=== PATIENT | male | born 1990 | race Caucasian/White ===

== ENCOUNTER 2019-01-25 21:14 | Emergency (ER) | payer OTHER, MEDICAID ==
[~2019-01-25] VITALS: Ht 182.9 cm; Wt 95.3 kg
[2019-01-25 22:06] VITALS: BP 115/73
[2019-01-25 23:31] LABS: Basophils # (auto) 0 uL; Basophils % (auto) 0.5 % (0.0-2.0); Eosinophils # (auto) 0.1 uL; Eosinophils % (auto) 1.6 % (0.0-7.0); Hematocrit 37.8 % (41.0-53.0); Hemoglobin 13.3 g/dL (13.5-17.5); Lymphocytes # (auto) 0.7 uL; Lymphocytes % (auto) 14.6 % (10.0-50.0); Mean Corpuscular Hemoglobin 30.3 pg (28.0-32.0); Mean Corpuscular Hgb Conc. 35.2 g/dL (32.0-36.0); Mean Corpuscular Volume 85.9 fL (80.0-100.0); Monocytes # (auto) 0.3 uL; Monocytes % (auto) 6.5 % (0.0-12.0); Neutrophils # (auto) 3.9 uL; Neutrophils % (auto) 76.8 % (37.0-80.0); Nucleated Red Blood Cells % 0.1 %; Platelet Count (auto) 146 10^3/uL (140-450); Red Cell Distribution Width 13.4 % (11.8-14.3); White Blood Cell 5.1 10^3/uL (4.4-10.8)
[2019-01-25 23:36] LABS: Albumin 2.8 g/dL (3.4-5.0); Calcium 7.9 mg/dL (8.5-10.1); Potassium 3.6 mmol/L (3.5-5.1)
[2019-01-25 23:39] LABS: BUN/Creatinine Ratio 7.7; Bilirubin, Total 0.3 mg/dL (0.2-1.0); Total Protein 6.8 g/dL (6.4-8.2)
== END 2019-01-26 01:36 | disposition left against medical advice (07) ==
LOC: ER 21:21
DX: R04.0 Epistaxis (principal); Z53.21 Procedure and treatment not carried out due to patient leaving prior to being seen by health care provider
CPT/HCPCS: 36415; 80053; 85025; 93005

== ENCOUNTER 2019-01-26 07:26 | Emergency (ER) | payer OTHER, MEDICAID ==
[~2019-01-26] VITALS: Ht 182.9 cm; Wt 95.3 kg
[2019-01-26 07:32] VITALS: BP 127/55
[2019-01-26] MEDS ORDERED: cefTRIAXone SOD 1,000 MG VL IM ONE (08:00)
[2019-01-26] MEDS ORDERED: KETOROLAC TROMETH 60MG/2ML VIAL IM ONE (08:00)
== END 2019-01-26 09:09 | disposition home or self-care (01) ==
LOC: ER 07:27
DX: J03.90 Acute tonsillitis, unspecified (principal); J01.20 Acute ethmoidal sinusitis, unspecified
CPT/HCPCS: 70450; 96372; 99284; J0696; J1885

== ENCOUNTER 2025-02-02 13:15 | Emergency (ER) | payer BC, MEDICAID, OTHER ==
[~2025-02-02] VITALS: Ht 180.3 cm; Wt 106.8 kg
--- NOTE | 2025-02-02 15:10 | ED.PDOC ---
Musculoskeletal HPI Comments This is a 34 year old male presenting to the ED with chief complaint of left upper arm pain. Patient reports that he has been experiencing left upper arm pain since last night after rough-housing with his brother. Patient relays that he is unable to lift his left arm without pain. Patient states that he took Ibuprofen last night with no relief. Patient denies any numbness, weakness, tingling, or fall. Chief Complaint: Upper Extremity Time Seen by MD: 15:09 Primary Care Provider: ALEJO Miranda Notes: Nurses Notes, Medications, Allergies Allergies: Coded Allergies: NO KNOWN ALLERGIES (Unverified , 07/22/09) Information Source: Patient, Spouse Mode of Arrival: Ambulatory Location: Left Extremity Location: Arm, Shoulder Timing: Hours Prehospital treatment: None Severity: Moderate Able to Move Extremity: No Bear Weight: Fully Pain: Moderate Hand Dominance: Right Mechanism: Spontaneous Circumstances: Playing Onset of Symptoms: Spontaneous Symptoms: Pain DVT Risk Factors: NONE Last Tetanus: Unknown Associated signs and symptoms: Shoulder pain, Arm pain Past Medical History PAST MEDICAL HISTORY: Denies Surgical History: Denies all surgeries Family History Family History: Reviewed,noncontributory to illness Social History Smoker: Cigarettes Alcohol: Denies ETOH Use Drugs: Denies Drug Use Lives In: Home Constitutional: denies: chills, diaphoresis, fatigue, fever, malaise, sweats, weakness, others EENTM: denies: blurred vision, double vision, ear bleeding, ear discharge, ear drainage, ear pain, ear ringing, eye pain, eye redness, hearing loss, mouth pain, mouth swelling, nasal discharge, nose bleeding, nose congestion, nose pain, photophobia, tearing, throat pain, throat swelling, voice changes, others Respiratory: denies: cough, hemoptysis, orthopnea, SOB at rest, shortness of breath, SOB with excertion, stridor, wheezing, others Cardiovascular: denies: chest pain, dizzy spells, diaphoresis, Dyspnea on exertion, edema, irregular heart beat, left arm pain, lightheadedness, palpitations, PND, syncope, others Gastrointestinal: denies: abdomen distended, abdominal pain, blood streaked bowels, constipated, diarrhea, dysphagia, difficulty swallowing, hematemesis, melena, nausea, poor appetite, poor fluid intake, rectal bleeding, rectal pain, vomiting, others Genitourinary: denies: burning, dysuria, flank pain, frequency, hematuria, incontinence, penile discharge, penile sore, pain, testicle pain, testicle swelling, urgency, others Neurological: denies: dizziness, fainting, headache, left sided numbness, left sided weakness, numbness, paresthesia, pre-existing deficit, right sided numbness, right sided weakness, seizure, speech problems, tingling, tremors, weakness, others Musculoskeletal: reports: others (Left arm pain); denies: back pain, gout, joint pain, joint swelling, muscle pain, muscle stiffness, neck pain Integumetry: denies: bruises, change in color, change in hair/nails, dryness, laceration, lesions, lumps, rash, wounds, others Allergic/Immunocompromised: denies: Difficulty Healing, Frequent Infections, Hives, Itching, others Hematologic/Lymphatic: denies: anemia, blood clots, easy bleeding, easy bruising, swollen glands, others Endocrine: denies: excessive hunger, excessive sweating, excessive thirst, excessive urination, flushing, intolerance to cold, intolerance to heat, unexplained weight gain, unexplained weight loss, others Psychiatric: denies: anxiety, bipolar disorder, depression, hopeless, panic disorder, schizophrenia, sleepless, suicidal, others All Other Systems: Reviewed and Negative Physical Exam General Appearance: No Apparent Distress, Normal HEENT: Normal ENT Inspection, Pharynx Normal, TMs Normal Neck: Full Range of Motion, Non-Tender, Normal, Normal Inspection Respiratory: Chest Non-Tender, Lungs Clear, No Accessory Muscle Use, No Respiratory Distress, Normal Breath Sounds Cardiovascular: No Edema, No JVD, No Murmur, No Gallop, Normal Peripheral Pulses, Regular Rate/Rhythm Breast Exam: Deferred Gastrointestinal: No Organomegaly, Non Tender, No Pulsatile Mass, Normal Bowel Sounds, Soft Genitalia: Deferred Pelvic: Deferred Rectal: Deferred Extremities: No calf tenderness, Normal capillary refill, Normal inspection, Normal range of motion, Non-tender, No pedal edema Musculoskeletal : Location: Left Extremity Location: Arm Apperance: Tenderness (Left deltoid tenderness) Neurologic: Alert, director of business continuity II-XII nml as Tested, No Motor Deficits, Normal Affect, Normal Mood, No Sensory Deficits Cerebellar Function: Normal Reflexes: Normal Skin: Dry, Normal Color, Warm Lymphatic: No Adenopathy Was a procedure done? Was a procedure done?: No Differential Diagnosis EXT Differential Diagnosis: Fracture, Sprain, Dislocation, Contusion, Strain X-Ray, Labs, Meds, VS Vital Signs Date Time Temp Pulse Resp B/P (MAP) Pulse Ox O2 Delivery O2 Flow Rate FiO2 02/02/25 15:53 98.2 110 19 124/60 (81) 95 98.2 02/02/25 15:53 110 19 95 Room Air* 0 21 02/02/25 13:23 98.9 117 15 120/75 98 98.9 Current Medications Medications (Trade) Dose Ordered Sig/Chao Route Start Time Stop Time Status Last Admin Acetaminophen/ Hydrocodone Bitart ([place] 5/325MG Tab) 1 tab ONCE ONCE PO 02/02/25 15:00 02/02/25 15:01 DC 02/02/25 15:59 Time of 1ST Reevaluation: 16:09 Reevaluation 1ST: Improved Patient Education/Counseling: Diagnosis, Treatment Family Education/Counseling: No Family Present Departure 1 Departure Time of Disposition: 16:46 (Patient's x-rays are benign. We will discharge patient home with outpatient follow up) Impression: Primary Impression: Sprain of left shoulder Disposition: 01 HOME / SELF CARE / HOMELESS Condition: Stable Referrals: KYLE RIVERA MD Additional Instructions: You likely sprained your shoulder. Your x-rays were benign for any fractures and your shoulder is not dislocated. For comfort you can wear a shoulder sling For pain you can take the followinam: Ibuprofen 400mg with food Noon: Acetaminophen 1000mg 4pm: Ibuprofen 400mg with food 8pm: Acetaminophen 1000mg You were referred to an orthopedic surgeon to ensure you are healing well. Please call for an appointment within one week. If your symptoms worsen or you have any other concerns then please return to the ER. Discharged With: Self Critical Care Note Critical Care Time?: No Stability Stability form required: No Heart Score Heart Score: Heart Score Response (Comments) Value History N/A 0 EKG N/A 0 Age N/A 0 Risk Factors N/A 0 Troponin N/A 0 Total 0 I personally scribed for NAYELY ARREDONDO MD ([email or web address]) on 02/02/25 at 15:10. Electronically submitted by Ebenezer Abarca ([email or web address]). NAYELY ARREDONDO MD Feb 02, 2025 15:10
--- NOTE | 2025-02-02 15:41 | DVH ---
EXAM: XY L SHOULDER 2+ VIEW XRAY INDICATION: Pain left shoulder pain TECHNIQUE: 2views of the left shoulder COMPARISON: None FINDINGS/IMPRESSION: No radiographic evidence of an acute osseous abnormality. There is no acute fracture, osseous malalignment, or aggressive focal osseous lesion. There is no radiographically apparent joint space narrowing.
[2025-02-02 15:53] VITALS: BP 124/60; PULSE 110; RESP 19; TEMP 98.2; O2SAT 95
[2025-02-02] MEDS: HYDROcodone-ACET 5/325MG TAB PO ONE (15:59)
== END 2025-02-02 16:59 | disposition home or self-care (01) ==
LOC: ER 13:15
DX: S43.402A Unspecified sprain of left shoulder joint, initial encounter (principal); F17.210 Nicotine dependence, cigarettes, uncomplicated; X58.XXXA Exposure to other specified factors, initial encounter; Y93.83 Activity, rough housing and horseplay; Y92.89 Other specified places as the place of occurrence of the external cause; Y99.8 Other external cause status
CPT/HCPCS: 73030